=== PATIENT | male | born 2000 | race Caucasian/White ===

== ENCOUNTER 2024-01-08 15:04 | Outpatient (CLI) | payer BC, SELFPAY ==
--- OUTSIDE RECORDS SUMMARY | 2024-01-08 15:13 | XMS_ITS ---
Author Organization [facility] Address [address] [place] [address] Care Team Providers Care Vp Client Services Name Role Phone Master OLIVEIRA, Dr Celaya Primary Care Provider UnaPhyllis Pryor Unavailable [phone] REASON FOR VISIT New Refill Request Medications Medication SIG (Take, Route, Fr equency, Duration) Notes Start Date End Date Status LaMICtal XR 200 MG 1 tab (200mg) in AM [take with 3x50mg tablets for total AM dose of 350mg] and 2 tabs (400mg) at bedtime Orally as directed for 30 days Active Encounters Encounter Location Date Provider Diagnosis [facility] [address] [place] [address] 11/28/2023 Phyllis Jaimes Generalized idiopathic epilepsy and epileptic syndromes, not intractable, 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 Assessments Encounter Date Diagnosis (ICD Code) Assessment Notes Treat ment Notes Treatment Clinical Notes 11/28/2023 Generalized idiopathic epilepsy and epileptic syndromes, not intractable, without status epilepticus (ICD-10 - G40.309) Plan Of Treatment Medication Medication Name Sig Start Date Stop Date Notes LaMICtal XR 200 MG 1 tab (200mg) in AM [take with 3x50mg tablets for total AM dose of 350mg] and 2 tabs (400mg) at bedtime Orally as directed for 30 days Progress Notes * Hansel DUNCANDOB:2000 ( 23 yo M)Acc No.[id number]:11/28/2023 Patient:?Hansel DUNCAN :2000???Age:23 Y???Sex:Male Address:[address], [place], [address] * Refills? Refill LaMICtal XR Tablet Extended Release 24 Hour, 200 MG, Orally, 90, 1 tab (200mg) in AM [take with 3x50mg tablets for total AM dose of 350mg] and 2 tabs (400mg) at bedtime, as directed, 30 days, Refills=2 * true * Date:? Generated for Truong milton/Aylin/Daosmitting on:?01/08/2024 03:13 PM CDT
--- OUTSIDE RECORDS SUMMARY | 2024-01-08 15:13 | XMS_ITS | Clinical Summary ---
Author Organization [facility] Address [place], [place] [address] Care Team Providers Care Refuge Manager Name Role Phone Phyllis Jaimes MD Unavailable [phone] Pcp, No Primary Care Provider Unavailabl e Allergies Active Allergy Reactions Criticality Noted Date Comments Penicillins Rash 06/20/2016 Medications Medication Sig Dispensed Refills Start Date End Date Status lamoTRIgine (LAMICTAL) 100 mg tablet Take 1 tablet by mouth 2 times daily. 3 05/29/2016 Active levETIRAcetam (KEPPRA) 750 mg tablet 11/15/2020 Active Active Problems Problem Noted Date Diagnosed Date Nonintractable generalized i diopathic epilepsy without status epilepticus 12/13/2020 Immunizations Name Administration Dates Next Due COVID-19 vaccine (xMatters 30mcg/0.3mL) GER JIMENES 01/10/2021,12/20/2020 DTaP 08/14/2006, 2,2001,09/03 DTaP-HIB (TriHIBIT) 10/15/2002 HIB HbOC (HibTITER) 01/13/2002,2001 HIB-HepB (Comvax) 2001 HPV 9 (Gardasil 9) 12/13/2020,11/25/2017, 017 Hepatitis A (Peds) 07/27/2009,07/23/2007 Hepatitis B (Peds) 04/30/2002 Hepatitis B, Unspecified 2001 Inactivated Polio Vaccine 08/14/2006,,2001,09/03 MMR 08/14/2006,07/22/2002 Meningococcal B 11/25/2017 Meningococcal Vaccine (Menactra) 11/25/2017 Meningococcal Vaccine (Menveo) 12/15/2013 Pneumococcal conj 7-Valent (Prevnar 7) 0 10/15/2002,04/30/2002,01/13/2002,09/03 Tdap 12/15/2013 Varicella Vaccine 07/23/2007,07/22/2002 Social History Tobacco Use Types Packs/Day Years Used Date Smoking Tobacco: Never Smokeless Tobacco: Never Tobacco Cessation:Counseling Given: Yes Alcohol Use Standard Drinks/Week Comments No 0 (1 standard drink = 0.6 oz pur e alcohol) PHQ-2 Answer Date Recorded PHQ-2 TOTAL SCORE 1 12/13/2020 Social Connections Answer Date Recorded Frequency of Communication with Friends and Fami ly Not on file 05/19/2021 Financial Resource Strain Answer Date R ecorded Difficulty of Paying Living Expenses Not on file 05/19/2021 Difficulty of Paying Living Expenses Not on file 05/19/2021 Sex and Gender Information Value Date Recorded Sex Assigned at Not on file Gender Identity Not on file Sexual Orientation Not on file Obstetrics History Last Filed Vital Signs Vital Sign Reading Time Taken Comments Blood Pressure 122/76 12/13/2020 1:40 PM CDT Pulse 80 12/13/2020 1:40 PM CDT Temperature 36.9 ??C (98.4 ??F) 06/20/2016 1:07 PM CS T Respiratory Rate - - Oxygen Saturation 97% 06/20/2016 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 Concentration - - Weight 68.9 kg (152 lb) 12/13/2020 1:40 PM CDT Height 167 cm (5' 5.75) 12/13/2020 1:40 PM CDT Body Mass Index 24.72 12/13/2020 1:40 PM CDT Plan of Treatment Health Maintenance Due Date Last Done Comments HIV for age 15-65 2016 Hepatitis C screening for age 18-79 2019 BMI (ht and wt on same day) for age 18+ 12/13/2021 12/13/2020 Depression screening for age 12+ 12/13/2021 12/13/2020, 12/13/2020, 12/13/2020 COVID-19 vaccine series (3 - 2023-24 season) 2023 01/10/2021, 12/20/2020 Tetanus booster 12/16/2023 12/15/2013 Influenza for age 9-49 01/18/2024 Pneumococcal series for age 6-64 Aged Out 10/15/2002, 04/30/2002, 01/13/2002, Additional history exists No longer eligible based on patient's age to complete this topic Tdap Completed 12/15/2013 HPV series for age 9-26 Completed 12/14/19, 11/25/2017, 10/24/2016 Care Teams Refuge Manager Relationship Specialty Start Date End Date Pcp, No . PCP - General 12/14/20 Phyllis Jaimes MD Consulting Physician Neurology 05/18/20
--- OUTSIDE RECORDS SUMMARY | 2024-01-08 15:13 | XMS_ITS | Patient Health Record ---
Author Organization [facility] Address [address] [place] [address] Care Team Providers Care Food Sampler Name Role Phone Master OLIVEIRA, Dr Celaya Primary Care Provider Phyllis Christine Unavailable [phone] Allergies Allergen (clinical drug ingredient) Drug/Non Drug Allergy documented on EMR Reaction Allergy Type Onset Date Status Substance with penicillin structure and antibacterial mechanism of action (substance) Penicillins (uncoded) rash Allergy Active Reason For Referral No Information Medications Medication SIG (Take, Route, Frequency, Duration) Notes Start Date End Date Status lamoTRIgine ER 50 MG TAKE 3 TABLETS BY MOUTH EVERY MORNING for 30 Active lamoTRIgine ER 50 MG 3 tablets Orally every AM x1 week, then decrease to 2 tablets every AM for 30 days Take with 200mg tabs with goal dose 300mg AM - 400mg PM Active LaMICtal XR 200 MG 1 tab (200mg) in AM [take with 2x50mg tablets for total AM dose of 300mg] and 2 tabs (400mg) in PM Orally as directed for 30 days Active Valtoco 10 MG Dose 10 MG/0.1ML 1 spray (0.1mL) Nasally as needed (prn) for a seizure lasting 3 minuts or longer. If seizure continues, may repeat dose X 1 (in the opposite nostril) in 7 minutes. Call 911 if seizure continues for 30 days Dispense 2 packs containing two 10mg doses. Active levETIRAcetam 1000 MG TAKE 1 TABLET(1000 MG) BY MOUTH TWICE DAILY for 90 Active Social History Tobacco Use: Social History Observation Description Date Details (start date - stop date) Never Smoker NA - NA Alcohol Question Answer Notes Did you have a drink containing alcohol in the p ast year? No Points 0 Interpretation Negative Tobacco Use Question Answer Notes Are you a: nonsmoker Problems Problem Type SNOMED Code ICD Code Onset Dates Problem Status W/U Status Risk Notes Problem Generalized idiopathic epilepsy and epileptic syndromes, not intractable, without status epilepticus (G40.309) Active confirmed Vital Signs Height-cm 167.64 cm 12/17/2023 Height 66 in 12/17/2023 Weight 70.4 kg 12/17/2023 BMI 25.05 kg/m2 12/17/2023 Encounters Encounter Location Date Provider Diagnosis [facility] [address] [place] [address] 12/17/2023 Phyllis Jaimes Generalized idiopathic epilepsy and epileptic syndromes, not intractable, 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 and Other fci (current) drug therapy Z79.899 [facility] [address] [place] [address] 01/08/2023 Phyllis Jaimes [facility] [address] [place] [address] 01/10/2023 Phyllis Jaimes [facility] [address] [place] [address] 10/14/2023 Phyllis Jaimes [facility] [address] [place] [address] 11/28/2023 Phyllis Jaimes Generalized idiopathic epilepsy and epileptic syndromes, not intractable, 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 [facility] [address] [place] [address] 11/28/2023 Phyllis Fiona Generalized idiopathic epilepsy and epileptic syndromes, not intractable, 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 [facility] [address] [place] [address] 01/06/2024 Phyllis Jaimes Assessments Encounter Date Diagnosis (ICD Code) Assessment Notes Treatment Notes Treatment Clinical Notes 11/28/2023 Generalized idiopathic epilepsy and epileptic syndromes, not intractable, without status epilepticus (ICD-10 - G40.309) 11/28/2023 Generalized idiopathic epilepsy and epileptic syndromes, not intractable, without status epilepticus (ICD-10 - G40.309) 12/17/2023 Generalized idiopathic epilepsy and epileptic syndromes, not intractable, without status epilepticus (ICD-10 - G40.309) MEDS- Increase Levetiracetam (Keppra) to 1,000mg twice a day. *we will provide you with new tablet size. (in meantime you can take 750mg in AM and 1125mg in PM (one and half of the 750mg tablets) until you get the new tab size). - After 1 week on the higher levetiracetam dose then decrease Lamotrigine (Lamictal) by 50mg to dosage of 300mg in the morning and 400mg at night. *If you do well with this for about 2 months we can consider another small decrease. REFILLSWe will authorize refills at your pharmacy. Let the pharmacy know when you need refills, and do not wait until you are almost out of medication, as it may take 7-10 days to process your request. RESCUE MEDICATION- Continue using Diazepam Nasal [place] (Valtoco) as needed for seizure emergencies. Check the expiration date and let us know if you need a refill. If you have rescue medication, be sure to keep track of the medication's expiration date. LABS/DIAGNOSTIC IMAGING- You will have labs drawn to check medication levels. Please have these labs done at [facility] in [place]. Try to have the labs checked preschool lead teacher but after the medication changes, waiting at least 4 days after the changes to get the most reliable results. If possible, have your blood drawn at trough, which means first thing in the morning before taking your anti-seizure medication, or at least six hours after your last dose was taken. Do not withhold your medication longer than one hour past your usual dosing time to have this done. You do NOT need to fast for this test. SUMMARY OF DISCUSSION- MEDICATION: You are to start the increased dose of Levetiracetam (Keppra) now and then decrease the Lamotrigine (Lamictal) by 50mg in the morning after one week. This change is to help reduce the mild shakiness you've been experiencing, which may be a side effect of the medication. - SIDE EFFECTS: If you notice any side effects such as increased tiredness or dizziness, especially after the medication changes, these should subside within two weeks. If they persist or are concerning, please contact us. - SEIZURE SAFETY: Keep your bed on the floor for safety, and ensure your rescue medication is in a known place for you and your roommate. - DIET: Remember to take your medication with food, especially if you start noticing side effects. A meal with fat and protein is recommended. - SLEEP: Make sure to prioritize sleep and manage stress to maintain good seizure control. - SEIZURE RESPONSE: If you have a seizure, the [facility] or campus medical staff will call 911. Your roommate and medical management trainer are informed about your condition and can administer rescue medication if comfortable doing so. Recommend having someone in your building be aware of your seizure disorder. For example a roommate or a Manager [employer] (RA). They should be aware of your seizures and what to do if seizure occurs, for example any rescue medication. The [facility] is a good resource https://www.epilepsy foundation[place].org/sup port-training/traini ngs-webinars/ -Alcohol can increase risk for seizure so please be careful with use. Large quantities of alcohol (for many more than 2 drinks in a day) can increase risk for seizures EDUCATIONAL/ADDITION AL NOTESReducing Seizure Risk 1. Take all seizure medications. Do not miss doses. In event you miss a dose of medication then take as soon as you remember. Call office if you need direction of how to make-up missed medication. Make taking medication part of your daily routine. 2. Get good sleep. try to go to bed at same time. avoid lights/screens at night near bedtime. 3. Be aware that alcohol can increase risk for seizures, especially heavy use. FOLLOW-UP- You can see me again in 12 months or sooner if needed. If you require medication refills or have any concerns, please contact our office. Thank you for choosing the [facility]! 12/17/2023 Other laborer marine terminal (current) drug therapy (ICD-10 - Z79.899) Plan Of Treatment Pending Test Test Name Order Date BASIC METABOLIC PANEL 09/10/2019 LAMOTRIGINE 09/10/2019 LAMOTRIGINE 12/17/2023 LEVETIRACETAM 12/17/2023 Insurance Providers Payer Name Payer Address Payer Phone Subscriber Number Group Number Insured Name Patient Relationship to Insured Coverage Start Date Coverage End Date [facility] [address] [address] [place] [address] [id number] Yamilet Duncan Child - Insured has Financial Responsibility Medical (General) History Medical History History ICD Code Seizure onset at 14 years of age - 6/1/2 015 Surgical History Surgery Date(Month/Year) PE tubes Tonsils and adenoids Hospitalization History Reason Date(Month/Year) New onset seizure ([facility]), 10/17/2014.
--- OUTSIDE RECORDS SUMMARY | 2024-01-08 15:13 | XMS_ITS ---
Author Organization [facility] Address [address] [place] [address] Care Team Providers Care Starting Gate Driver Name Role Phone Master OLIVEIRA, Dr Celaya Primary Care Provider Unava ilable Phyllis Jaimes Unavailable [phone] REASON FOR VISIT Labs Encounters Encounter Location Date Provider Diagnosis [facility] [address] [place] [address] 01/06/2024 Phyllis Jaimes Plan Of Treatment No Information Progress Notes * Hansel DUNCANDOB:2000 ( 23 yo M)Acc No.[id number]:01/06/2024 Patient:?DAKOTA Hansel :2000???Age:23 Y???Sex:Male Address:[address], [address] * true * Date:? Generated for Printi ng/Faxing/eTransmitting on:?01/08/2024 03:13 PM CDT
[2024-01-11 02:28] LABS: Keppra (Levetiracetam) 31 ug/mL (10-40); Lamotrigine 13.5 ug/mL (3.0-15.0)
== END 2024-01-08 15:05 | disposition home or self-care (01) ==
PROVIDERS: Visit Provider Psychiatry & Neurology Neurology
DX: G40.309 Generalized idiopathic epilepsy and epileptic syndromes, not intractable, without status epilepticus (principal)
CPT/HCPCS: 36415; 80175; 80177